=== PATIENT | male | born 1965 | race Caucasian/White ===

== ENCOUNTER 2020-12-14 06:48 | Day surgery (SDC) | payer MEDICARE ==
[~2020-12-14] VITALS: Ht 167.6 cm; Wt 40.4 kg
[~2020-12-14 06:48] MED LIST: 0.9%NACL 1000ML 1,000 ML IV ONE; ACET-2743 PO; ACET1TAB25 PO; ALFU10TA9 PO; BACL10TA PO; BEANO PO; BISA10SU61 RC; DEXL60CA3 PO; DIAZ5TAB4 PO; DOMPERIDONE PO; L.AC1CAP6 PO; MAGN1TAB2 PO; MELA3CAP2 PO; MONT-39 PO; MV-M1TAB20 PO; POLY17PO4 PO; PROM6.254 TP
[2020-12-14 07:00] VITALS: BP 116/62
[2020-12-14] MEDS ORDERED: PROPOFOL 10 MG/ML 20ML VIAL IV ONE ×2 (09:36)
[2020-12-14 09:53] VITALS: BP 118/75
[2020-12-14 10:16] VITALS: BP 120/70
[2021-10-17] MEDS ORDERED: ACET-66 PO (15:09)
[2021-10-17] MEDS ORDERED: SUCR1TAB28 PO (15:09)
[2021-10-17] MEDS ORDERED: BACL5TAB PO (15:09)
[2021-10-17] MEDS ORDERED: ESOM40SU PO (15:10)
[2021-10-17] MEDS ORDERED: LORA10TA7 PO (15:10)
== END 2020-12-14 10:26 | disposition home or self-care (01) ==
LOC: ENDO 06:48 → DAH 06:48 → ENDO 10:26
PROVIDERS: ATTEND Internal Medicine Gastroenterology
DX: K22.70 Barrett's esophagus without dysplasia (principal); Z20.822 Contact with and (suspected) exposure to COVID-19; K29.50 Unspecified chronic gastritis without bleeding; R63.4 Abnormal weight loss; K59.04 Chronic idiopathic constipation; K31.7 Polyp of stomach and duodenum; K21.9 Gastro-esophageal reflux disease without esophagitis; K44.9 Diaphragmatic hernia without obstruction or gangrene; D64.9 Anemia, unspecified; Z98.890 Other specified postprocedural states; Z90.49 Acquired absence of other specified parts of digestive tract; Z83.3 Family history of diabetes mellitus; Z83.79 Family history of other diseases of the digestive system; Z79.899 Other long term (current) drug therapy
CPT/HCPCS: 43239; 88305; 88342; A4215; A4221; A4222; A4223; A4606; A4620; A4663; C9803; J2704 ×2; J7030; U0003

== ENCOUNTER 2021-08-09 21:45 | Observation (INO) | payer MEDICARE ==
[~2021-08-09] VITALS: Ht 154.9 cm; Wt 38.8 kg
[~2021-08-09 21:45] MED LIST changes: -0.9%NACL 1000ML 1,000 ML IV ONE
[2021-08-09 22:03] VITALS: BP 112/76
[2021-08-09] MEDS ORDERED: 0.9%NACL 1000ML 1,000 ML IV ONE (23:00)
[2021-08-09 23:11] LABS: BASOPHILS % (AUTO) 0.2 % (0.0-5.0); EOSINOPHILS % (AUTO) 0.4 % (0.0-8.0); HEMATOCRIT 39.4 % (42-54); LYMPHOCYTES % (AUTO) 11.6 % (21.0-51.0); MEAN CORPUSCULAR HEMOGLOBIN 26.8 pg (27.0-33.0); MEAN CORPUSCULAR VOLUME 83.8 fL (79-99); MONOCYTES % (AUTO) 7.7 % (3.0-13.0); NEUTROPHILS % (AUTO) 79.7 % (40.0-77.0); PLATELET COUNT (AUTO) 266 K/uL (130-400); RED CELL DISTRIBUTION WIDTH 14.9 % (11.0-15.5); WHITE BLOOD COUNT (AUTO) 9.7 K/uL (4.8-10.8)
[2021-08-09 23:24] LABS: CREATININE 0.9 mg/dL (0.5-1.5); POTASSIUM 4.4 mmol/L (3.5-5.1)
[2021-08-09 23:28] LABS: ALBUMIN 3.7 g/dL (3.5-5.0); BILIRUBIN,TOTAL 0.4 mg/dL (0.2-1.0); TOTAL PROTEIN, SERUM 7.1 g/dL (6.0-8.3)
[2021-08-10] VITALS (9 sets, daily range): BP systolic 100–131; BP diastolic 62–107
[2021-08-10] MEDS ORDERED: ONDANSETRON 4MG INJ IV PRN (03:00)
[2021-08-10] MEDS: LACTATED RINGERS 1000ML 1,000 ML IV SCH ×2 (03:29→13:00)
[2021-08-10] MEDS ORDERED: DOXA1TAB2 PO (04:11)
[2021-08-10] MEDS ORDERED: [UNRECOGNIZED DRUG - CODE] PO (04:17)
[2021-08-10] MEDS ORDERED: DIAZ5TAB4 PO (04:22)
[2021-08-10] MEDS ORDERED: FAMO40TA7 PO (04:25)
[2021-08-10 06:21] LABS: INR 1.21 (0.85-1.15)
[2021-08-10] MEDS ORDERED: DIAZEPAM 5 MG TABLET PEG ONE (09:00)
[2021-08-10] MEDS: DICYCLOMINE HCL 20 MG TAB PEG SCH (09:22)
[2021-08-10] MEDS: FAMOTIDINE 20MG TAB PO SCH ×2 (09:22→21:18)
[2021-08-10] MEDS: BACLOFEN 10 MG TABLET PEG SCH (09:22)
[2021-08-11] VITALS (19 sets, daily range): BP systolic 93–123; BP diastolic 53–73
[2021-08-11 04:32] LABS: BASOPHILS % (AUTO) 0.5 % (0.0-5.0); EOSINOPHILS % (AUTO) 0.7 % (0.0-8.0); HEMATOCRIT 39.4 % (42-54); LYMPHOCYTES % (AUTO) 9.8 % (21.0-51.0); MEAN CORPUSCULAR HEMOGLOBIN 26.1 pg (27.0-33.0); MEAN CORPUSCULAR HGB CONC 30.5 g/dL (32.0-36.0); MEAN CORPUSCULAR VOLUME 85.8 fL (79-99); MONOCYTES % (AUTO) 5.5 % (3.0-13.0); NEUTROPHILS % (AUTO) 83.2 % (40.0-77.0); PLATELET COUNT (AUTO) 239 K/uL (130-400); RED BLOOD CELL COUNT(AUTO) 4.59 MIL/uL (4.50-6.20); WHITE BLOOD COUNT (AUTO) 8.7 K/uL (4.8-10.8)
[2021-08-11 04:47] LABS: CREATININE 0.8 mg/dL (0.5-1.5); MAGNESIUM 1.8 mg/dL (1.80-2.40); PHOSPHORUS 3.9 mg/dL (2.5-4.9); POTASSIUM 4.4 mmol/L (3.5-5.1)
[2021-08-11] MEDS ORDERED: DEXTROSE 5%-WATER 1,000 ML IV ONE (08:15)
[2021-08-11] MEDS ORDERED: DEXTROSE 50%-WATER 50 ML DISP.SYRIN IV ONE (08:23)
[2021-08-11] MEDS ORDERED: DEXTROSE 50%-WATER 50 ML DISP.SYRIN IV SCH ×2 (08:30→10:30)
[2021-08-11] MEDS ORDERED: DEXTROSE 5%-WATER 1,000 ML IV SCH (08:30)
[2021-08-11] MEDS: FAMOTIDINE 20MG TAB PO SCH (09:00)
[2021-08-11] MEDS: DICYCLOMINE HCL 20 MG TAB PEG SCH (09:00)
[2021-08-11] MEDS: BACLOFEN 10 MG TABLET PEG SCH (09:00)
[2021-08-11] MEDS ORDERED: LOPERAMIDE 1 MG/7.5 ML UDCUP PO PRN (11:00)
[2021-08-11] MEDS ORDERED: PROPOFOL 10 MG/ML 20ML VIAL IV ONE (12:00)
[2021-08-11] MEDS ORDERED: LIDOCAINE HCL 1% 20 ML VIAL ONE (12:00)
[2021-08-11] MEDS ORDERED: PHENYLEPHRINE HCL 10 MG/ML 1ML VIAL IV ONE (12:05)
[2021-08-11] MEDS ORDERED: BACLOFEN 10 MG TABLET PO SCH (21:00)
[2021-08-12] MEDS ORDERED: DIAZEPAM 5 MG TABLET GT SCH (09:00)
[2021-08-12] MEDS ORDERED: CETIRIZINE HCL 5 MG TABLET PO SCH (09:00)
[2021-08-12] MEDS ORDERED: DICYCLOMINE HCL 20 MG TAB PEG SCH (09:00)
[2021-08-12] MEDS ORDERED: DOXAZOSIN MESYLATE 2 MG TABLET PO SCH (09:00)
[2021-10-17] MEDS ORDERED: BACL5TAB PO (15:09)
[2021-10-17] MEDS ORDERED: SUCR1TAB28 PO (15:09)
[2021-10-17] MEDS ORDERED: ACET-66 PO (15:09)
[2021-10-17] MEDS ORDERED: LORA10TA7 PO (15:10)
[2021-10-17] MEDS ORDERED: ESOM40SU PO (15:10)
== END 2021-08-11 16:00 | disposition home or self-care (01) ==
LOC: EDH 21:45 → EDHIP 08-10 02:53 → 3CH 08-10 04:36
PROVIDERS: ADMIT Internal Medicine; ATTEND Internal Medicine
DX: K92.0 Hematemesis (principal); Z20.822 Contact with and (suspected) exposure to COVID-19; K21.9 Gastro-esophageal reflux disease without esophagitis; K92.1 Melena; G80.9 Cerebral palsy, unspecified; K22.70 Barrett's esophagus without dysplasia; I85.00 Esophageal varices without bleeding
CPT/HCPCS: 36415 ×3; 43235; 71045; 80048; 80053; 82270; 82948; 83735; 84100; 85025 ×2; 85610; 85730; 86850; 86900; 86901; 87635; 96360; 96361 ×2; 99284; A4215; A4222; A4223; A4620; A4657; G0378 ×35; J2370; J2704; J7030 ×2; J7070 ×2; J7120 ×2

== ENCOUNTER 2021-10-18 09:26 | Day surgery (SDC) | payer MEDICARE ==
[2021-10-18] VITALS (9 sets, daily range): BP systolic 92–115; BP diastolic 52–85
[~2021-10-18] VITALS: Ht 167.6 cm; Wt 38.6 kg
[~2021-10-18 09:26] MED LIST changes: -ACET-2743 PO; +ACET-66 PO; -ACET1TAB25 PO; -ALFU10TA9 PO; -BACL10TA PO; +BACL5TAB PO; -BEANO PO; -BISA10SU61 RC; -DEXL60CA3 PO; -DOMPERIDONE PO; +DOXA1TAB2 PO; +ESOM40SU PO; +FAMO40TA7 PO; +LORA10TA7 PO; -MAGN1TAB2 PO; -MONT-39 PO; -POLY17PO4 PO; +SUCR1TAB28 PO; +[UNRECOGNIZED DRUG - CODE] PO
[2021-10-18] MEDS ORDERED: DICY10SO PO (11:24)
[2021-10-18] MEDS ORDERED: 0.9%NACL 1000ML 1,000 ML IV ONE (11:26)
[2021-10-18] MEDS ORDERED: PROPOFOL 10 MG/ML 20ML VIAL IV ONE (11:50)
== END 2021-10-18 13:00 | disposition home or self-care (01) ==
LOC: DAH 09:26
PROVIDERS: ATTEND Internal Medicine Gastroenterology
DX: K25.4 Chronic or unspecified gastric ulcer with hemorrhage (principal); K22.70 Barrett's esophagus without dysplasia; K31.89 Other diseases of stomach and duodenum; K44.9 Diaphragmatic hernia without obstruction or gangrene; R12 Heartburn; D64.9 Anemia, unspecified; R63.4 Abnormal weight loss; Z90.49 Acquired absence of other specified parts of digestive tract; Z93.1 Gastrostomy status; Z79.899 Other long term (current) drug therapy; Z20.822 Contact with and (suspected) exposure to COVID-19
CPT/HCPCS: 43239; 87635; 88305; A4215 ×2; A4221; A4222; A4223; A4606; A4620; A4663; C9803; J2704; J7030

== ENCOUNTER 2022-04-03 16:46 | Inpatient (IN) | payer MEDICARE ==
[~2022-04-03] VITALS: Ht 167.6 cm; Wt 46.3 kg
[~2022-04-03 16:46] MED LIST changes: +DICY10SO PO
[2022-04-03 17:39] LABS: BASOPHILS % (AUTO) 0.5 % (0.0-5.0); EOSINOPHILS % (AUTO) 1.1 % (0.0-8.0); HEMATOCRIT 40.7 % (42-54); MEAN CORPUSCULAR HGB CONC 31.2 g/dL (32.0-36.0); MEAN CORPUSCULAR VOLUME 83.4 fL (79-99); MONOCYTES % (AUTO) 7.5 % (3.0-13.0); NEUTROPHILS % (AUTO) 73.7 % (40.0-77.0); PLATELET COUNT (AUTO) 192 K/uL (130-400); RED BLOOD CELL COUNT(AUTO) 4.88 MIL/uL (4.50-6.20); RED CELL DISTRIBUTION WIDTH 14.4 % (11.0-15.5); WHITE BLOOD COUNT (AUTO) 6.2 K/uL (4.8-10.8)
[2022-04-03 17:48] LABS: CREATININE 0.8 mg/dL (0.5-1.5)
[2022-04-03 17:53] LABS: ALBUMIN 3.9 g/dL (3.5-5.0); BILIRUBIN,TOTAL 0.3 mg/dL (0.2-1.0); TOTAL PROTEIN, SERUM 7.3 g/dL (6.0-8.3)
[2022-04-03] MEDS: 0.9%NACL 1000ML 1,000 ML IV SCH (20:44)
[2022-04-04] VITALS (22 sets, daily range): BP systolic 98–132; BP diastolic 59–85
[2022-04-04] MEDS ORDERED: METF-444 PO (00:01)
[2022-04-04] MEDS ORDERED: DIPH25TA20 PO (00:01)
[2022-04-04] MEDS ORDERED: DICY10CA13 PO (00:01)
[2022-04-04] MEDS ORDERED: LACT1CAP80 PO (00:01)
[2022-04-04] MEDS ORDERED: SIME125T62 PO (00:01)
[2022-04-04] MEDS ORDERED: ESOM40CA PO ×2 (00:01→00:23)
[2022-04-04] MEDS ORDERED: ATOR10 PO (00:01)
[2022-04-04] MEDS ORDERED: MV-M1TAB20 PO (00:01)
[2022-04-04] MEDS ORDERED: VITAD50000 PO ×2 (00:01→00:23)
[2022-04-04] MEDS ORDERED: EZET10TA48 PO (00:01)
[2022-04-04] MEDS ORDERED: PREG50CA63 PO (00:01)
[2022-04-04] MEDS ORDERED: MULT-1192 PO (00:01)
[2022-04-04] MEDS ORDERED: SUCR1TAB2 PO (00:23)
[2022-04-04] MEDS ORDERED: DIAZ5TAB4 PO (00:23)
[2022-04-04] MEDS ORDERED: MELA10CA2 PO (00:23)
[2022-04-04] MEDS ORDERED: ONDA8TAB12 PO (00:23)
[2022-04-04] MEDS ORDERED: METO5TAB2 PO (00:23)
[2022-04-04] MEDS ORDERED: LORA-997 PO (00:23)
[2022-04-04] MEDS ORDERED: L.AC1CAP6 PO (00:23)
[2022-04-04] MEDS: 0.9%NACL 1000ML 1,000 ML IV SCH (02:02)
[2022-04-04 05:04] LABS: BASOPHILS % (AUTO) 0.6 % (0.0-5.0); EOSINOPHILS % (AUTO) 2.2 % (0.0-8.0); HEMATOCRIT 37.4 % (42-54); LYMPHOCYTES % (AUTO) 22.7 % (21.0-51.0); MEAN CORPUSCULAR HEMOGLOBIN 25.7 pg (27.0-33.0); MEAN CORPUSCULAR VOLUME 82.9 fL (79-99); MONOCYTES % (AUTO) 8.9 % (3.0-13.0); NEUTROPHILS % (AUTO) 65.2 % (40.0-77.0); PLATELET COUNT (AUTO) 191 K/uL (130-400); RED BLOOD CELL COUNT(AUTO) 4.51 MIL/uL (4.50-6.20); RED CELL DISTRIBUTION WIDTH 14.3 % (11.0-15.5); WHITE BLOOD COUNT (AUTO) 7.2 K/uL (4.8-10.8)
[2022-04-04 05:13] LABS: INR 1.06 (0.85-1.15); PROTHROMBIN TIME 11.5 SEC (9.6-11.6)
[2022-04-04 05:14] LABS: PARTIAL THROMBOPLASTIN TIME 27.9 SEC (26.3-35.5)
[2022-04-04 05:16] LABS: CREATININE 0.6 mg/dL (0.5-1.5); PHOSPHORUS 3.5 mg/dL (2.5-4.9); POTASSIUM 3.7 mmol/L (3.5-5.1)
[2022-04-04] MEDS: FAMOTIDINE 20MG VIAL IV SCH (08:41)
[2022-04-04] MEDS ORDERED: LIDOCAINE HCL 1% 20 ML VIAL ONE (11:39)
[2022-04-04] MEDS ORDERED: PROPOFOL 10 MG/ML 20ML VIAL IV ONE ×2 (11:39)
[2022-04-04] MEDS ORDERED: FENTANYL CITRATE PF 50 MCG/1 ML 2ML VIAL ONE (11:40)
[2022-04-04] MEDS ORDERED: PHENYLEPHRINE HCL 10 MG/ML 1ML VIAL IV ONE (11:58)
[2022-04-04] MEDS: ONDANSETRON 4MG INJ IV PRN (21:54)
[2022-04-05] VITALS (7 sets, daily range): BP systolic 110–126; BP diastolic 69–90
[2022-04-05] MEDS: ONDANSETRON 4MG INJ IV PRN (03:45)
[2022-04-05 05:57] LABS: BASOPHILS % (AUTO) 0.7 % (0.0-5.0); EOSINOPHILS % (AUTO) 1.8 % (0.0-8.0); LYMPHOCYTES % (AUTO) 18.4 % (21.0-51.0); MEAN CORPUSCULAR HEMOGLOBIN 26.7 pg (27.0-33.0); MEAN CORPUSCULAR HGB CONC 32.4 g/dL (32.0-36.0); MEAN CORPUSCULAR VOLUME 82.4 fL (79-99); MONOCYTES % (AUTO) 9.1 % (3.0-13.0); NEUTROPHILS % (AUTO) 69.4 % (40.0-77.0); PLATELET COUNT (AUTO) 209 K/uL (130-400); RED BLOOD CELL COUNT(AUTO) 4.49 MIL/uL (4.50-6.20); RED CELL DISTRIBUTION WIDTH 14.3 % (11.0-15.5); WHITE BLOOD COUNT (AUTO) 8.2 K/uL (4.8-10.8)
[2022-04-05 06:08] LABS: CREATININE 0.7 mg/dL (0.5-1.5); POTASSIUM 4.1 mmol/L (3.5-5.1)
[2022-04-05] MEDS: FAMOTIDINE 20MG VIAL IV SCH (09:17)
[2022-04-05] MEDS: SUCRALFATE 1 GM TABLET PO SCH (21:11)
[2022-04-05] MEDS: METOCLOPRAMIDE 10 MG/2 ML VIAL IVP SCH (21:11)
[2022-04-05] MEDS: PANTOPRAZOLE 40 MG/VIAL IVP SCH (21:12)
[2022-04-06 03:33] VITALS: BP 124/82
[2022-04-06 05:13] LABS: BASOPHILS % (AUTO) 0.9 % (0.0-5.0); EOSINOPHILS % (AUTO) 2.4 % (0.0-8.0); HEMATOCRIT 36.1 % (42-54); LYMPHOCYTES % (AUTO) 19.5 % (21.0-51.0); MEAN CORPUSCULAR HEMOGLOBIN 26.1 pg (27.0-33.0); MEAN CORPUSCULAR HGB CONC 32.1 g/dL (32.0-36.0); MEAN CORPUSCULAR VOLUME 81.3 fL (79-99); NEUTROPHILS % (AUTO) 66.7 % (40.0-77.0); PLATELET COUNT (AUTO) 207 K/uL (130-400); RED BLOOD CELL COUNT(AUTO) 4.44 MIL/uL (4.50-6.20); RED CELL DISTRIBUTION WIDTH 14.3 % (11.0-15.5); WHITE BLOOD COUNT (AUTO) 6.3 K/uL (4.8-10.8)
[2022-04-06 05:25] LABS: CREATININE 0.6 mg/dL (0.5-1.5); POTASSIUM 3.6 mmol/L (3.5-5.1)
[2022-04-06 07:15] VITALS: BP 138/82
[2022-04-06] MEDS: SUCRALFATE 1 GM TABLET PO SCH (08:04)
[2022-04-06] MEDS: METOCLOPRAMIDE 10 MG/2 ML VIAL IVP SCH (08:04)
[2022-04-06] MEDS: PANTOPRAZOLE 40 MG/VIAL IVP SCH (08:04)
[2022-04-06 11:45] VITALS: BP 131/82
== END 2022-04-06 13:50 | disposition home or self-care (01) | DRG 393 ==
LOC: EDH 16:46 → EDHIP 19:50 → OBSVTOIN 19:50 → 3DH 04-04 00:17
PROVIDERS: ADMIT Internal Medicine; ATTEND Internal Medicine
PROC: 0DH63UZ Insertion of Feeding Device into Stomach, Percutaneous Approach (ICD-10-PCS; principal; 2022-04-04)
PROC: 0DB58ZX Excision of Esophagus, Via Natural or Artificial Opening Endoscopic, Diagnostic (ICD-10-PCS; 2022-04-04)
PROC: 0DB68ZX Excision of Stomach, Via Natural or Artificial Opening Endoscopic, Diagnostic (ICD-10-PCS; 2022-04-04)
DX: K94.23 Gastrostomy malfunction (principal); K29.71 Gastritis, unspecified, with bleeding; K92.0 Hematemesis; D64.9 Anemia, unspecified; K22.70 Barrett's esophagus without dysplasia; Z20.822 Contact with and (suspected) exposure to COVID-19; K21.00 Gastro-esophageal reflux disease with esophagitis, without bleeding; K29.70 Gastritis, unspecified, without bleeding; Y83.8 Other surgical procedures as the cause of abnormal reaction of the patient, or of later complication, without mention of misadventure at the time of the procedure; Y82.8 Other medical devices associated with adverse incidents; Z74.01 Bed confinement status
CPT/HCPCS: 36415; 43239; 43246; 71045; 74018; 74240; 80048; 80053; 83735; 84100; 85025; 85610; 85730; 86850; 86900; 86901; 87635; 93005; A4606; C9113; G0378; J2370; J2405; J2704; J2765; J3010; J3490; J7030

== ENCOUNTER → 2022-04-10 | Outpatient (CLI) | payer MEDICARE ==
[~2022-04-10] MED LIST changes: +DIATR MEGLU/DIATRIZOATE SODIUM 30 ML BOTTLE ONE; +ESOM40CA PO; -ESOM40SU PO; -FAMO40TA7 PO; +LORA-997 PO; +MELA10CA2 PO; -MELA3CAP2 PO; +METO5TAB2 PO; +ONDA8TAB12 PO; +SUCR1TAB2 PO; +VITAD50000 PO; -[UNRECOGNIZED DRUG - CODE] PO
== END | disposition home or self-care (01) ==
LOC: RAH 11:31
PROVIDERS: ATTEND Internal Medicine
DX: Z93.1 Gastrostomy status (principal)
CPT/HCPCS: 74018; Q9963